=== PATIENT | female | born 1980 | race Caucasian/White ===

== ENCOUNTER → 2023-12-17 | Outpatient (CLI) | payer OTHER ==
[~2023-12-17] MED LIST: ATOR10; CETI5 PO; CLIN300 PO; CYCL10 PO; Cipro500 MG PO; HYDACE5 PO; HYDHCL25; HYDHCL25 PO; HYDR1TAB94 PO; IBUP600 PO; Keflex500 MG PO; LEVSOD50; Mupirocin22 GM TP; Norco 5-325 Ta1 EACH PO; PANT40 PO; RXCYCL10 PO; RXHYDACE PO; RXTRAM50 PO; TRAM50 PO; Ultram50 MG PO; Zofran Odt4 MG SL
== END ==
LOC: LAB 07:28 → LAB SHORT 07:28
DX: N93.8 Other specified abnormal uterine and vaginal bleeding (principal)
CPT/HCPCS: 88305

== ENCOUNTER → 2023-12-17 | Outpatient (CLI) | payer OTHER ==
[2023-12-23 09:58] LABS: HPV GENOTYPE 16 Not Detected; HPV GENOTYPE 18 Not Detected; HPV HIGH RISK Not Detected; HPV SOURCE Vaginal
== END ==
LOC: LAB SHORT 17:08 → LAB 17:08
PROVIDERS: Obstetrics & Gynecology
DX: Z01.419 Encounter for gynecological examination (general) (routine) without abnormal findings (principal)
CPT/HCPCS: 87624

== ENCOUNTER → 2024-04-07 | Outpatient (CLI) | payer OTHER ==
[~2024-04-07] MED LIST changes: +ACET500 PO; +ELIQUIS2.5 MG PO; +FERSU300 PO
[2024-04-07 20:38] LABS: Bacterial Vaginosis PCR Negative (NEGATIVE); Candida Group, PCR NOT DETECTED (NOT DETECT); Candida glabrata-krusei, PCR NOT DETECTED (NOT DETECT)
== END | disposition home or self-care (01) ==
LOC: LAB 16:58 → LAB SHORT 16:58
PROVIDERS: Obstetrics & Gynecology
DX: N89.8 Other specified noninflammatory disorders of vagina (principal)
CPT/HCPCS: 87481; 87661; 87801

== ENCOUNTER → 2025-06-27 | Outpatient (CLI) | payer OTHER | END | disposition home or self-care (01) | LOC: LAB SHORT 19:26 → LAB 19:26 | DX: E55.9 Vitamin D deficiency, unspecified (principal) | CPT/HCPCS: 82306 ==